=== PATIENT | female | born 2000 | race Two or more races ===

== ENCOUNTER 2019-04-21 23:50 | Emergency (ER) | payer OTHER ==
[~2019-04-21] VITALS: Ht 160 cm; Wt 83.5 kg
[2019-04-22] MEDS ORDERED: ZITHROMAX500 MG PO (01:51)
== END 2019-04-22 01:57 | disposition home or self-care (01) ==
LOC: ER 23:50
DX: J11.1 Influenza due to unidentified influenza virus with other respiratory manifestations (principal); B96.0 Mycoplasma pneumoniae [M. pneumoniae] as the cause of diseases classified elsewhere; R50.9 Fever, unspecified